=== PATIENT | male | born 1960 | race African-American/Black ===

== ENCOUNTER 2022-05-29 15:02 | Emergency (ER) | payer OTHER, SELFPAY ==
--- NOTE | ~2022-05-29 | XR_ITS ---
EXAMINATION: XR lumbar spine 2-3V, XR hip LT 2V w AP pelvis, XR sacrum coccyx min 2V DATE: 05/29/2022 17:52 INDICATION: Low back and pelvic pain post fall TECHNIQUE: 1.Anteroposterior and lateral views of the lumbar spine, and cone-down lateral view of the lumbosacra l junction were obtained. 2. Anteroposterior view of the sacrum, anteroposterior view of the coccyx and lateral view of the sac rum and coccyx were obtained. 3. Anteroposterior view of the pelvis and anteroposterior and frog-leg lateral views of the left hip were obtained. COMPARISON: None. FINDINGS: Lumbar spine: Alignment is normal. Prominent Schmorl's node along the superior endplate of T12. Lumbar vertebral jevon dy and disc heights are normal. Mild to moderate lower lumbar facet osteoarthritis. Visualized extracorporeal technician ior lung bases are clear with no pleural effusion. Pelvis, left hip, sacrum and coccyx: Alignment is normal. Sacral arches are intact. No fracture. Mild osteoarthritis at the bilateral sacr al iliac joints, right greater than left. Minimal bilateral hip osteoarthritis. IMPRESSION: 1. Minimal to mild degenerative skeletal changes in the lumbar spine, pelvis and hips. No acute osseo us abnormality. Reviewed, dictated and finalized at location A. TER WAITRESS/WAITER IMPRESSION: 1. Minimal to mild degenerative skeletal changes in the lumbar spine, pelvis an d hips. No acute osseous abnormality. IMPRESSION: 1. Minimal to mild degenerative skeletal changes in the lumbar spine, pelvis an d hips. No acute osseous abnormality.
[2022-05-29 15:05] VITALS: BP 216/94; PULSE 57; RESP 16; TEMP 36.8; O2SAT 100
--- NOTE | 2022-05-29 16:44 | ED.FALL ---
HPI - Fall General Chief Complaint: Fall Stated Complaint: back injury Time Seen by Provider: 05/29/22 16:41 Source: patient and family Mode of arrival: ambulatory Limitations: no limitations History of Present Illness HPI Narrative: Patient is a 62-year-old male presenting to the emergency department for evaluation of pain in his bottom following a, fall. Patient states that he was helping a family member walk up the stairs to their house when he slipped, causing him to land directly on his bottom. No head trauma or loss of conscious. Patient reports pain in his bottom near his rectum. He denies any saddle anesthesia. He denies focal weakness or numbness. He denies difficulty with bowel or bladder function and feels that he is fully able to empty his bladder. Patient denies any chronic anticoagulation. He reports mild left lower back pain without midline back pain. He denies cervical or thoracic spine pain. Patient has been ambulatory without difficulty. Patient denies prodromal symptoms prior to the fall such as chest pain, dyspnea, shortness of breath, lightheadedness or dizziness. Patient without history of injury to the back, pelvis in the past. Of note, patient states that he has been without his blood pressure medication over the past 4 days because of prescription ran out. He takes 100 mg of losartan daily. He denies any chest pain, dyspnea, shortness of breath. He denies headache pain, vision changes, dizziness. Related Data Allergies Allergy/AdvReac Type Severity Reaction Status Date / Time No Known Allergies Allergy Verified 05/29/22 17:57 Review of Systems Review of Systems: CONSTITUTIONAL: Denies fever, chills, or sweats. EYES: Denies visual changes, redness, or discharge. ENT: Denies rhinorrhea, congestion, sore throat, or otalgia. CARDIOVASCULAR: Denies chest pain, palpitations, or edema. RESPIRATORY: Denies cough or dyspnea. GASTROINTESTINAL: Denies abdominal pain, nausea, vomiting, or diarrhea. GENITOURINARY: Denies dysuria or hematuria. Denies saddle anesthesia. Denies urinary retention. SKIN: Denies rash or itching. MUSCULOSKELETAL: Denies back pain, reports coccygeal lower back pain, denies extremity pain NEUROLOGIC: Denies headache, numbness, or weakness. [facility] Past Medical History Medical History (Updated 05/29/22 @ 18:44 by Sayda Hinojosa MD) CVA (cerebral vascular accident) Surgical History Surgical History (Updated 05/29/22 @ 17:19 by Sayda Hinojosa MD) H/O right knee surgery Social History Social History (Updated 05/29/22 @ 17:20 by Sayda Hinojosa MD) Smoking status: Former smoker Alcohol intake: never Gender identity (if verbalized by the patient): Male Exam Narrative: GENERAL: Awake, alert, conversant HEAD: Normocephalic, atraumatic. EYES: PERRLA and EOMI. ENT: Nares clear, no rhinorrhea or epistaxis. Mucous membranes moist. NECK: Supple.No midline cervical tenderness. No step-offs or deformities. CHEST: No respiratory distress, breathing even and non labored HEART: Regular rate, sinus rhythm ABDOMEN:Non distended, non tender EXTREMITIES: Normal range of motion. No edema. No deformities, injury noted on assessment. Full range of motion with normal strength in the bilateral upper and lower extremities. Intact sensation in the upper and lower extremities. MSK: No midline thoracic or lumbar tenderness, mild left paraspinal lumbar tenderness, no ecchymoses Pelvis is stable to anterior lateral compression. No limb length discrepancy. Mild left hip pain with internal and external rotation. No deformity noted. SKIN: Warm, dry, no rash. NEURO:No focal deficits. Alert and oriented x3, ambulatory without any dysmetria or ataxia Course Vital Signs Vital signs: Vital Signs Temperature 36.8 C 05/29/22 15:05 Pulse Rate 57 L 05/29/22 15:05 Respiratory Rate 16 05/29/22 15:05 Blood Pressure 216/94 H 05/29/22 15:05 Pulse Oximetry 100 05/29/22 15:05
--- NOTE | 2022-05-29 17:34 | PC.NURSE ---
Patient off unit to Radiology.
[2022-05-29] MEDS: oxyCODONE/ACETAMINOPHEN (*CRX) 5-325 MG TABLET 1 TABLET PO (17:57)
[2022-05-29] MEDS: LOSARTAN POTASSIUM 100 MG TABLET PO (17:58)
[2022-05-29] MEDS: IBUPROFEN 600 MG TABLET PO (17:58)
[2022-05-29 18:57] LABS: Influenza A QL RT-PCR Negative (Negative); Influenza B QL RT-PCR Negative (Negative); SARS-CoV-2 RNA PCR Negative
[2022-05-29 19:19] VITALS: BP 192/93; PULSE 53; RESP 18; O2SAT 100
== END 2022-05-29 19:23 | disposition home or self-care (01) ==
PROVIDERS: Emergency Provider Emergency Medicine
DX: S39.92XA Unspecified injury of lower back, initial encounter (principal); Z20.822 Contact with and (suspected) exposure to COVID-19; I10 Essential (primary) hypertension; Z86.73 Personal history of transient ischemic attack (TIA), and cerebral infarction without residual deficits; Z87.891 Personal history of nicotine dependence; W10.9XXA Fall (on) (from) unspecified stairs and steps, initial encounter
CPT/HCPCS: 72100; 72220; 73502; 87636; 99284; A9270